=== PATIENT | female | born 1955 | race African-American/Black ===

== ENCOUNTER 2018-12-27 07:18 | Emergency (ER) | payer MEDICARE, MEDICAID ==
[~2018-12-27] VITALS: Ht 167.6 cm; Wt 65.0 kg
[2018-12-27] MEDS ORDERED: KETOROLAC 60MG/2ML VIAL IM ONE (08:00)
[2018-12-27 08:11] VITALS: BP 133/55
== END 2018-12-27 08:36 | disposition home or self-care (01) ==
LOC: ER 07:18
DX: S09.8XXA Other specified injuries of head, initial encounter (principal); M54.2 Cervicalgia; W22.09XA Striking against other stationary object, initial encounter; Y93.89 Activity, other specified; Y92.89 Other specified places as the place of occurrence of the external cause; Y99.8 Other external cause status
CPT/HCPCS: 96372; 99283; J1885

== ENCOUNTER 2022-05-03 15:06 | Emergency (ER) | payer MEDICARE, MEDICAID ==
[~2022-05-03] VITALS: Ht 157.5 cm; Wt 54.0 kg
[2022-05-03 15:14] VITALS: BP 140/57
[2022-05-03] MEDS ORDERED: LORAZEPAM 0.5MG TABLET PO ONE (16:15)
== END 2022-05-03 16:36 | disposition left against medical advice (07) ==
LOC: ER 15:06
DX: F22 Delusional disorders (principal)
CPT/HCPCS: 99283

== ENCOUNTER 2022-05-16 01:41 | Emergency (ER) | payer MEDICARE, MEDICAID ==
[~2022-05-16 01:41] MED LIST: FERR324T4 MT; GABA-532 MT
[2022-05-16] MEDS ORDERED: TOPUD PO (08:19)
== END 2022-05-16 02:00 | disposition left against medical advice (07) ==
LOC: ER 01:41
DX: Z53.21 Procedure and treatment not carried out due to patient leaving prior to being seen by health care provider (principal)

== ENCOUNTER 2022-05-16 04:45 | Emergency (ER) | payer MEDICARE, MEDICAID ==
[~2022-05-16] VITALS: Ht 157.5 cm; Wt 50.9 kg
[2022-05-16 05:00] VITALS: BP 126/40
[2022-05-16] MEDS ORDERED: ACETAMINOPHEN 325MG TABLET PO ONE (07:45)
[2022-05-16] MEDS ORDERED: TOPUD PO (08:19)
== END 2022-05-16 08:45 | disposition home or self-care (01) ==
LOC: ER 04:45
DX: M79.672 Pain in left foot (principal); M79.671 Pain in right foot; G62.9 Polyneuropathy, unspecified
CPT/HCPCS: 73620; 99283

== ENCOUNTER 2022-05-26 15:32 | Emergency (ER) | payer MEDICARE, MEDICAID ==
[~2022-05-26] VITALS: Ht 162.6 cm; Wt 55.0 kg
[~2022-05-26 15:32] MED LIST changes: +TOPUD PO
[2022-05-26] MEDS ORDERED: ACETAMINOPHEN 325MG TABLET PO ONE (17:30)
[2022-05-26] MEDS ORDERED: ACET-2708 MT (18:18)
[2022-05-26 18:56] VITALS: BP 130/78
== END 2022-05-26 19:02 | disposition home or self-care (01) ==
LOC: ER 15:32
DX: G62.9 Polyneuropathy, unspecified (principal); I10 Essential (primary) hypertension
CPT/HCPCS: 99283

== ENCOUNTER 2022-06-21 23:05 | Emergency (ER) | payer MEDICARE, MEDICAID ==
[~2022-06-21] VITALS: Ht 157.5 cm; Wt 57.0 kg
[~2022-06-21 23:05] MED LIST changes: +ACET-2708 MT
[2022-06-21 23:27] VITALS: BP 146/82
[2022-06-22] MEDS ORDERED: HYDROCODONE/ACETAMINOPHEN 5/325MG TABLET PO STA (04:19)
[2022-06-22] MEDS ORDERED: TOPUD PO (07:04)
== END 2022-06-22 07:38 | disposition home or self-care (01) ==
LOC: ER 23:05
DX: R10.11 Right upper quadrant pain (principal); F99 Mental disorder, not otherwise specified; Z59.00 Homelessness unspecified; W01.190A Fall on same level from slipping, tripping and stumbling with subsequent striking against furniture, initial encounter; Y93.89 Activity, other specified; Y92.89 Other specified places as the place of occurrence of the external cause
CPT/HCPCS: 71101; 74176; 99284